=== PATIENT | female | born 1990 | race Two or more races ===

== ENCOUNTER 2018-01-12 20:38 | Emergency (ER) | payer OTHER ==
[~2018-01-12] VITALS: Ht 154.9 cm; Wt 55.1 kg
[2018-01-12] MEDS ORDERED: TENOFOVIR 300MG TABLET PO ONE (22:45)
[2018-01-12] MEDS ORDERED: EMTRICITABINE 200MG CAPSULE PO ONE (22:45)
[2018-01-12] MEDS ORDERED: RALTEGRAVIR 400MG TABLET PO ONE (22:45)
[2018-01-13 00:42] LABS: HEPATITIS B SURFACE ANTIGEN NEGATIVE
[2018-01-13 02:05] VITALS: BP 121/74
[2018-01-13 05:42] LABS: HEPATITIS B SURFACE AB 253.1 mIU/mL
[2018-01-13 05:53] LABS: HEPATITIS B SURFACE ANTIGEN NEGATIVE
== END 2018-01-13 02:07 | disposition home or self-care (01) ==
LOC: ER 01-13 00:39
DX: Z77.21 Contact with and (suspected) exposure to potentially hazardous body fluids (principal); H57.8 Other specified disorders of eye and adnexa; Y93.F9 Activity, other caregiving; Y92.230 Patient room in hospital as the place of occurrence of the external cause; Y99.0 Civilian activity done for income or pay
CPT/HCPCS: 36415; 86703; 99284